=== PATIENT | male | born 2000 | race Caucasian/White ===

== ENCOUNTER 2022-09-04 12:00 | Emergency (ER) | payer OTHER ==
[2022-09-04] MEDS ORDERED: Acetaminophen 500 MG TAB ONE (12:23)
[2022-09-04] MEDS ORDERED: Ketorolac Tromethamine 30 MG/ML VIAL ONE (12:23)
== END 2022-09-04 13:54 | disposition home or self-care (01) ==
LOC: ERS 12:00
DX: S62.636A Displaced fracture of distal phalanx of right little finger, initial encounter for closed fracture (principal); F17.220 Nicotine dependence, chewing tobacco, uncomplicated
CPT/HCPCS: 96372; J1885

== ENCOUNTER 2022-11-05 05:48 | Day surgery (SDC) | payer BC, OTHER ==
[2022-11-04 14:35] VITALS: BMI 26.6
[2022-11-05] MEDS ORDERED: Midazolam HCl 2 mg/2 ml Vial ONE (06:31)
[2022-11-05] MEDS ORDERED: fentaNYL PF 100 MCG/2 ML SYRINGE ONE (06:31)
[2022-11-05] MEDS ORDERED: Bupivacaine 0.25% HCL 30 ML VIAL ONE (06:41)
[2022-11-05] MEDS ORDERED: Lidocaine 1% (PF) 30 ML VIAL ONE (06:41)
[2022-11-05] MEDS ORDERED: Sodium Chloride 0.9% 100 ML ONE (06:51)
[2022-11-05] MEDS ORDERED: CEFAZOLIN 2 GM VIAL ONE (06:51)
[2022-11-05] MEDS ORDERED: Dexamethasone 20 MG/5 ML VIAL ONE (06:54)
[2022-11-05] MEDS ORDERED: Ondansetron PF 4 MG/2 ML Vial ONE (06:54)
[2022-11-05] MEDS ORDERED: PROPOFOL 200 MG/20 ML VIAL ONE (06:54)
[2022-11-05] MEDS ORDERED: Lidocaine 1% PF 5 ML VIAL ONE (06:54)
[2022-11-05] MEDS ORDERED: Ketorolac Tromethamine 30 MG/ML VIAL ONE (06:54)
[2022-11-05] MEDS ORDERED: fentaNYL 50 mcg/mL 1 mL Vial ONE (08:05)
[2022-11-05] MEDS ORDERED: Meperidine HCl/PF 25 MG/ML VIAL ONE (08:11)
== END 2022-11-05 09:47 | disposition home or self-care (01) ==
LOC: SDC 05:48
PROVIDERS: ATTEND Surgery Surgery of the Hand
PROC: 0RS Upper Joints, Reposition (ICD-10-PCS; principal; 2022-11-05)
DX: S63.054A Dislocation of other carpometacarpal joint of right hand, initial encounter (principal); S62.141A Displaced fracture of body of hamate [unciform] bone, right wrist, initial encounter for closed fracture; V80.010A Animal-rider injured by fall from or being thrown from horse in noncollision accident, initial encounter; Y93.52 Activity, horseback riding
CPT/HCPCS: C1713; J1100; J1885; J2001; J2175; J2250; J2405; J2704; J3010; J3490; S0020